=== PATIENT | male | born 1995 | race Caucasian/White ===

== ENCOUNTER 2018-01-27 22:12 | Emergency (ER) | payer SELFPAY ==
[~2018-01-27] VITALS: Ht 162.6 cm; Wt 63.0 kg
[2018-01-27 22:30] VITALS: BP 120/73
--- NOTE | 2018-01-27 22:40 | NUR ---
PT BIBSELF, STATES HE SWALLOWED 1 INCH BLADE S/P DOING MAGIC TRICK. PLACED 5 IN MOUTH, 4 CAME OUT. DENIES DROOLING, SOB, ORAL TRAUMA/BLEEDING. VSS. NAD NOTED @ THIS TIME.
== END 2018-01-27 23:52 | disposition home or self-care (01) ==
LOC: ER 22:15
DX: Z00.00 Encounter for general adult medical examination without abnormal findings (principal)
CPT/HCPCS: 71045; 74018; 99284; A4606; Z7610